=== PATIENT | male | born 1950 | race Caucasian/White ===

== ENCOUNTER → 2017-06-24 | Day surgery (SDC) | payer OTHER, MEDICARE ==
--- NOTE | 2017-06-25 16:34 | RADIOLOGY REPORT ---
EXAMINATION: XR ABDOMEN CLINICAL INDICATION: Bilateral retrograde examination performed under fluoroscopic guidance. COMPARISON: None TECHNIQUE: Fluoroscopic imaging of the abdomen was utilized within the operating room at the time of bilateral retrograde ureterography. Please refer to the operative report. Fluoroscopy time: 29.7 seconds. Dose: 412.42 mrad Number of saved images: 23 images are submitted into the electronic picture archive. FINDINGS: Please refer to the operative report regarding the procedure indications, examination details and intraoperative findings. IMPRESSION: Fluoroscopic imaging assistance was provided to the operating room.
--- NOTE | 2017-06-25 19:04 | Operative Report ---
Operative/Inv Procedure Report Surgery Date: 06/24/17 Name of Procedure: Cystoscopy and bilateral retrograde pyelograms and selective cytology Pre-Operative Diagnosis: Gross hematuria and positive FISH testing Post-Operative Diagnosis: Same Estimated Blood Loss: none Surgeon/Journeyman Electrician: Ramesh MENDOZA,David Freire Anesthesia: local monitored anesthesi Drains: None Specimens: Bilateral selective barbotage Complications: None Condition: Good Operative Indication: Longtime smoker with recurrent gross hematuria. CT scan and cystoscopy were negative, but he had a positive fish test. We reviewed alternatives, and he was agreeable to undergo cystoscopy with bilateral selective cytology and retrograde pyelograms. We reviewed the risks and benefits thereof, he was agreeable to undergo the procedure which is as follows. Operative/Procedure Note Note: After uneventful administration of anesthesia patient was placed in the lithotomy position and prepped and draped in a sterile fashion. At this point a 22 [place] cystoscope was passed per urethra into the bladder. Thorough inspection of the bladder did not reveal any mucosal lesions. He had mild trabeculation. Excellent visualization did not reveal any evidence of malignancy. At this point attentionto the right orifice. This was cannulated with an open-ended catheter, which was passed up into the right kidney. Selective barbotage was performed and sent for analysis. Retrograde pyelogram was performed which was normal. A similar procedure was carried out on the opposite side using a new open-ended catheter, and syringe. Specimen was sent prior to retrograde pyelogram, which was normal. Upon completion of this the bladder was emptied patient was awakened and returned to recovery room in good condition. Findings: Normal retrograde pyelograms. Normal cystoscopy.
== END ==
LOC: STS 07:00
DX: R82.8 Abnormal findings on cytological and histological examination of urine (principal); R31.0 Gross hematuria; N40.1 Benign prostatic hyperplasia with lower urinary tract symptoms; N13.8 Other obstructive and reflux uropathy; Z87.891 Personal history of nicotine dependence
CPT/HCPCS: 74018; 88305; J0690